=== PATIENT | female | born 1955 | race Two or more races ===

== ENCOUNTER 2021-09-26 19:02 | Inpatient (IN) | payer OTHER ==
[~2021-09-26] VITALS: Ht 99.1 cm; Wt 74.4 kg
[2021-09-26] MEDS ORDERED: [UNRECOGNIZED DRUG - OTHER] (19:22)
[2021-09-26] MEDS ORDERED: TENORMIN25 MG (19:22)
--- NOTE | 2021-09-26 19:22 | NUR ---
SE RECIBE FEMINA ALERTA Y ORIENTADA X 3 ESFERAS EN AMBULANCIA LA CUAL INDICA QUE PRESENTA DOLOR ABDOMINAL Y DIARREAS DESDE AMANDA.
--- NOTE | 2021-09-26 21:04 | NUR ---
SE ORIENTA PTE SOBRE TX MEDICO EL CUAL REFIERE ENTENDER.SE LE EXTRAEN MUESTRAS BAJO MEDIDAS ASEPTICAS,PTE CANALIZADA POR PARAMEDICOS EN MANO RT PATENTE Y CAMERON DE EDEMA,SE LE ADMINISTRAN MEDICAMENTOS SUSAN ORDEN MEDICA,SE NOTIFICA CT PENDIENTE.
[2021-09-30] MEDS ORDERED: ATORVASTATIN CA40 MG (16:26)
[2021-09-30] MEDS ORDERED: OMEPRAZOLE20 MG (16:26)
== END 2021-09-30 17:04 | disposition home or self-care (01) | DRG 392 ==
LOC: ER 19:02 → MEDJ 09-27 01:12 → MEDI 09-29 18:16
PROVIDERS: ADMIT Internal Medicine; ATTEND Internal Medicine
PROC: BW21ZZZ Computerized Tomography (CT Scan) of Abdomen and Pelvis (ICD-10-PCS; principal; 2021-09-26)
PROC: BW28ZZZ Computerized Tomography (CT Scan) of Head (ICD-10-PCS; 2021-09-28)
DX: K52.89 Other specified noninfective gastroenteritis and colitis (principal); E86.0 Dehydration; Z20.822 Contact with and (suspected) exposure to COVID-19

== ENCOUNTER 2022-07-07 07:08 | Day surgery (SDC) | payer OTHER ==
[~2022-07-07 07:08] MED LIST: ATORVASTATIN CA40 MG; OMEPRAZOLE20 MG; PEPCID AC20 MG PO; SUCRALFATE1 GM; TENORMIN25 MG; [UNRECOGNIZED DRUG - OTHER]
== END 2022-07-07 12:20 | disposition home or self-care (01) ==
LOC: AMB-ENDOS 07:08 → CIR.AMB 13:00
PROVIDERS: ATTEND Colon & Rectal Surgery
DX: K62.1 Rectal polyp (principal); K57.32 Diverticulitis of large intestine without perforation or abscess without bleeding; Z12.11 Encounter for screening for malignant neoplasm of colon; K64.8 Other hemorrhoids; Z20.822 Contact with and (suspected) exposure to COVID-19